=== PATIENT | female | born 1970 ===

== ENCOUNTER 2017-11-19 11:00 | Inpatient (IN) | payer OTHER ==
[~2017-11-19] VITALS: Ht 160 cm; Wt 73.9 kg
[2017-11-19] MEDS ORDERED: LYRICA300 MG PO (12:08)
[2017-11-19] MEDS ORDERED: RELAFEN PO (12:09)
[2017-11-26] MEDS ORDERED: GABAPENTIN800 MG PO (15:39)
[2017-11-26] MEDS ORDERED: AMOX-CLAV 875-1 EACH PO (15:40)
[2017-11-26] MEDS ORDERED: RESTORIL15 MG PO (15:41)
[2017-11-26] MEDS ORDERED: PERCOCET 5-3251 EACH PO (15:41)
[2017-11-26] MEDS ORDERED: RESTORIL30 MG PO (15:41)
[2017-11-26] MEDS ORDERED: DOCUSATE SODIU100 MG PO (15:42)
== END 2017-11-27 13:08 | disposition home or self-care (01) | DRG 460 ==
LOC: O/R 11-26 04:35 → SURH 11-26 11:00 → PED 11-26 17:49
PROVIDERS: Orthopaedic Surgery Orthopaedic Surgery of the Spine
PROC: 0SG00AJ Fusion of Lumbar Vertebral Joint with Interbody Fusion Device, Posterior Approach, Anterior Column, Open Approach (ICD-10-PCS; 2017-11-26)
PROC: 0SG30AJ Fusion of Lumbosacral Joint with Interbody Fusion Device, Posterior Approach, Anterior Column, Open Approach (ICD-10-PCS; 2017-11-26)
PROC: 0ST20ZZ Resection of Lumbar Vertebral Disc, Open Approach (ICD-10-PCS; 2017-11-26)
PROC: 0ST40ZZ Resection of Lumbosacral Disc, Open Approach (ICD-10-PCS; 2017-11-26)
PROC: 07DS3ZZ Extraction of Vertebral Bone Marrow, Percutaneous Approach (ICD-10-PCS; 2017-11-26)
PROC: 00NY0ZZ Release Lumbar Spinal Cord, Open Approach (ICD-10-PCS; principal; 2017-11-26 13:30)
DX: M47.26 Other spondylosis with radiculopathy, lumbar region (principal); M43.16 Spondylolisthesis, lumbar region; M51.16 Intervertebral disc disorders with radiculopathy, lumbar region